=== PATIENT | female | born 1970 | race African-American/Black ===

== ENCOUNTER 2018-07-04 16:42 | Emergency (ER) | payer OTHER ==
[~2018-07-04] VITALS: Ht 144.8 cm; Wt 63.5 kg
[2018-07-04] MEDS ORDERED: FLONASE ALLERG9.9 ML NASAL (19:12)
[2018-07-04] MEDS ORDERED: ZITHROMAX TRI-500 MG PO (19:12)
== END 2018-07-04 19:31 | disposition home or self-care (01) ==
LOC: ER 16:42
DX: J04.0 Acute laryngitis (principal)